=== PATIENT | male | born 1960 | race Caucasian/White ===

== ENCOUNTER → 2016-05-05 | Outpatient (CLI) | payer BC ==
[2016-05-05 11:49] LABS: CH 30.3; CHCM 35.4; HCT 49.5 % (39.0-53.0); HDW 2.96; HGB 17.1 gm/dL (13.0-17.5); MCH 29.8 pg (25.0-35.0); MCHC 34.6 g/dL (31.0-37.0); MCV 86.1 fL (80.0-100.0); RBC 5.75 m/uL (4.30-5.90); RDW 13.2 % (11.5-15.5); WBC 7.1 k/uL (3.8-10.6)
[2016-05-05 12:04] LABS: Anion Gap 11 mmol/L; Blood Urea Nitrogen 14 mg/dL (9-20); Carbon Dioxide 26 mmol/L (22-30); Chloride 105 mmol/L (98-107); Non-African American GFR(MDRD) >60 (>60 ml/min/1.73 sqM); Potassium 4.3 mmol/L (3.5-5.1); Sodium 142 mmol/L (137-145)
== END | disposition home or self-care (01) ==
LOC: LABWHC1 11:27
PROVIDERS: ATTEND Internal Medicine Interventional Cardiology
DX: Z01.812 Encounter for preprocedural laboratory examination (principal); R07.9 Chest pain, unspecified
CPT/HCPCS: 36415; 80051; 82565; 84520; 85027

== ENCOUNTER 2016-05-07 06:17 | Day surgery (SDC) | payer BC ==
[2016-05-04 11:33] VITALS: BMI 28.1
[2016-05-07] MEDS ORDERED: ATORVASTATIN 80 MG TAB PO STA (06:25)
[2016-05-07] MEDS ORDERED: ALPRAZolam 0.25 MG TAB PO PRN (06:25)
[2016-05-07] MEDS ORDERED: SODIUM CHLORIDE 0.9% 1,000 ML in EMPTY BAG 1 BAG IV ONE (06:25)
[2016-05-07] MEDS ORDERED: NITROGLYCERIN SL TABS 0.4 MG TAB SUBLINGUAL PRN (06:25)
[2016-05-07] MEDS ORDERED: ALPRAZolam 0.5 MG TAB PO PRN (06:25)
[2016-05-07] MEDS ORDERED: ASPIRIN 325 MG TAB PO STA (06:25)
[2016-05-07 07:07] VITALS: RESP 18
[2016-05-07] MEDS ORDERED: SODIUM CHLORIDE 0.9% (PF) 10 ML VIAL ONE (07:18)
[2016-05-07] MEDS ORDERED: LIDOCAINE 2% INJ 20 MG/ML (20 ML MDV) ONE (07:18)
[2016-05-07] MEDS ORDERED: VERAPAMIL 2.5 MG/ML 2 ML AMP ONE (07:19)
[2016-05-07] MEDS ORDERED: HEPARIN SODIUM 1,000 UNIT/ML VIAL ONE (07:33)
[2016-05-07] MEDS ORDERED: diphenhydrAMINE 50 MG/ML 1 ML VIAL ONE (07:34)
[2016-05-07] MEDS ORDERED: MIDAZOLAM 2 MG/2 ML VIAL ONE (07:34)
[2016-05-07] MEDS ORDERED: MIDAZOLAM 2 MG/2 ML VIAL IVP ONE (07:50)
[2016-05-07] MEDS ORDERED: LIDOCAINE 2% INJ 20 MG/ML SQ ONE (07:51)
[2016-05-07] MEDS ORDERED: VERAPAMIL SYRINGE (5 MG/10 ML) INTRAARTER ONE (07:52)
[2016-05-07] MEDS ORDERED: HEPARIN SODIUM 1,000 UNIT/ML VIAL IV ONE (07:53)
[2016-05-07] MEDS ORDERED: IOHEXOL 350 MG/ML 100 ML BOTTLE INJ ONE (08:04)
[2016-05-07] MEDS ORDERED: RX INFO: IV CONTRAST WAS GIVEN 1 EACH MISC MISCELLANE PRN (08:09)
[2016-05-07] MEDS ORDERED: SODIUM CHLORIDE 0.9% 1,000 ML IV SCH (08:15)
--- NOTE | 2016-05-07 08:44 | CC ---
DATE OF SERVICE: 05/07/2016 PERFORMING PHYSICIAN: Malka Fang, Dentist. PROCEDURE PERFORMED: 1. Selective right and left coronary angiogram. 2. Left heart catheterization. 3. Left ventriculography. INDICATION: This is a pleasant 55-year-old gentleman who was referred to me by Dr. Love for abnormal stress test. The patient was experiencing chest discomfort and he underwent myocardial perfusion imaging stress test at [facility] and that showed ischemia involving the anterior wall. The heart catheterization is for rule out severe underlying CAD. APPROACH: Right radial artery. COMPLICATIONS: None. LEVEL OF SEDATION: Moderate. PROCEDURE DESCRIPTION: After obtaining an informed consent, the patient was brought to the [facility] The right radial artery was cannulated using micropuncture technique. Micropuncture wire passed easily. Then I placed 6 Bahamian sheath in the right radial artery. Subsequently, I did give the patient 2 mg of verapamil IA and 3000 units of heparin IV. Subsequently, I did selective right and left coronary angiogram using JR4 and JL 3.5 catheters. Then I did left heart catheterization using 5 Bahamian pigtail catheter. The procedure was completed without any complication. SELECTIVE CORONARY ANGIOGRAM: 1. The right coronary artery is a large-caliber vessel, dominant vessel, and is angiographically normal. 2. The left main is angiographically normal. It bifurcates into the left circumflex, ramus intermedius, and left anterior descending artery. The left circumflex is a large-caliber vessel and it is a nondominant vessel. The proximal left circumflex is angiographically normal and gives rises into the first OM branch, which seems to be normal. The mid left circumflex is normal and gives rise into the second and third OM branches and both are angiographically normal and the circ continues after that as a small-caliber vessel in the AV groove. 3. The ramus intermedius is a moderate-caliber vessel and seems to be angiographically normal. 4. Left anterior descending artery: The proximal left anterior descending artery is normal and gives rises into the first diagonal branch, which is a large-caliber vessel and seems to be angiographically normally. The mid LAD is normal and distally is normal as well. HEMODYNAMICS: The left ventricular end-diastolic pressure was 8 to 12 mmHg and no gradient was identified across the aortic valve. CONCLUSION: 1. Normal coronary angiogram. 2. Dominant right coronary system. POSTPROCEDURE MANAGEMENT: 1. Medical treatment. 2. Follow up with the patient.
--- NOTE | 2016-05-07 08:48 | LTR ---
May 07, 2016 RE: Caleb Vance S Dear Pat; Mr. Vance Ellis underwent a heart catheterization and that showed normal coronaries. The possibility of coronary vasospasm behind his chest discomfort is quite there. I recommend at this point medical treatment and if he continues to have chest discomfort, we might consider starting him on oral nitrate. Thank you for allowing me to participate in his care and please do not hesitate to call if you have any questions or concerns. Sincerely, JAMES SCHAEFER MD
[2016-05-07 12:23] VITALS: PULSE 72
[2016-05-07 13:33] VITALS: BP 134/83; TEMP 98
== END 2016-05-07 13:20 | disposition home or self-care (01) ==
LOC: CATHCVL 06:17
PROVIDERS: ATTEND Internal Medicine Interventional Cardiology
DX: I20.0 Unstable angina (principal); I10 Essential (primary) hypertension; R94.39 Abnormal result of other cardiovascular function study; Z82.49 Family history of ischemic heart disease and other diseases of the circulatory system; Z79.82 Long term (current) use of aspirin; Z79.899 Other long term (current) drug therapy
CPT/HCPCS: 93458; 99152; C1894; J2001; J2250; Q9967; J1644

== ENCOUNTER 2018-03-16 03:06 | Emergency (ER) | payer BC ==
[2018-03-16 03:13] VITALS: TEMP 98.2
--- NOTE | 2018-03-16 03:38 | ED ---
General Adult HPI - General Source: patient, RN notes reviewed Mode of arrival: ambulatory Limitations: no limitations <Jareth Ga - Last Filed: 03/16/18 03:36> <Esther Chase - Last Filed: 03/16/18 04:25> - General Chief complaint: Eye Problems Stated complaint: R eye problem Time Seen by Provider: 03/16/18 03:16 - History of Present Illness Initial comments: 57-year-old male presents emergency Department with multiple complaints. Patient complains that he's had recurrent subconjunctival hemorrhage on the right. Patient was seen at urgent care because he's had this symptom along with right-sided facial pressure and numbness. Patient states that they thought he had some underlying sinus issues was given antibiotics. Patient states he finished some on the of this month states that he had one day where he had relief but states that symptoms returned and he noticed the redness in his eye return today. Denies any visual changes including double vision, blurred vision. Denies any pain for ocular movement. Denies any trauma denies rubbing his eye. Patient states that he felt off balance, has had 3 falls doing simple task at home is concerned that something may be wrong. He does have follow-up appointment with ENT and ophthalmology. (Jareth Ga) - Related Data Home Medications Medication Instructions Recorded Confirmed Aspirin [Adult Low Dose Aspirin EC] 81 mg PO DAILY 06/12/15 05/07/16 Allergies Allergy/AdvReac Type Severity Reaction Status Date / Time No Known Allergies Allergy Verified 03/16/18 03:13 Review of Systems ROS Other: All systems not noted in ROS Statement are negative. <Jareth Ga - Last Filed: 03/16/18 03:36> ROS Other: All systems not noted in ROS Statement are negative. <Esther Chase - Last Filed: 03/16/18 04:25> ROS Statement: Those systems with pertinent positive or pertinent negative responses have been documented in the HPI. Past Medical History Past Medical History: GERD/Reflux Additional Past Medical History / Comment(s): GERD assosciate DYSPHAGIA, History of Any Multi-Drug Resistant Organisms: None Reported Additional Past Surgical History / Comment(s): COLONOSCOPY. EGD Past Anesthesia/Blood Transfusion Reactions: No Reported Reaction Past Psychological History: No Psychological Hx Reported Smoking Status: Never smoker Past Alcohol Use History: Occasional Past Drug Use History: None Reported - Past Family History Brother(s) Family Medical History: Cancer Additional Family Medical History / Comment(s): PROSTATE <Jareth Ga - Last Filed: 03/16/18 03:36> General Exam Limitations: no limitations General appearance: alert, in no apparent distress Head exam: Present: atraumatic, normocephalic, normal inspection Eye exam: Present: PERRL, EOMI, other (Subconjunctival hemorrhage on the right) . Absent: normal appearance, scleral icterus, conjunctival injection, periorbital swelling ENT exam: Present: normal exam, normal oropharynx, mucous membranes moist, TM's normal bilaterally Neck exam: Present: normal inspection, full ROM. Absent: tenderness, meningismus, lymphadenopathy Respiratory exam: Present: normal lung sounds bilaterally. Absent: respiratory distress, wheezes, rales, rhonchi, stridor Cardiovascular Exam: Present: regular rate, normal rhythm, normal heart sounds. Absent: systolic murmur, diastolic murmur, rubs, gallop, clicks Neurological exam: Present: alert, oriented X3, CN II-XII intact, reflexes normal. Absent: motor sensory deficit Skin exam: Present: warm, dry, intact, normal color. Absent: rash <Jareth Ga M - Last Filed: 03/16/18 03:36> Vital Signs 03/16/18 03:09 Temperature 98.2 F Pulse Rate 86 Respiratory 17 Rate Blood Pressure 111/61 O2 Sat by Pulse 96 Oximetry Medical Decision Making - Lab Data Result diagrams: 03/16/18 03:37 03/16/18 03:37 <Esther Chase P - Last Filed: 03/16/18 04:25> - Lab Data Lab Results 03/16/18 03/16/18 03/16/18 Range/Units 03:37 03:37 03:37 WBC 8.0 (3.8-10.6) k/uL RBC 5.69 (4.30-5.90) m/uL Hgb 17.0 (13.0-17.5) gm/dL Hct 48.2 (39.0-53.0) % MCV 84.8 (80.0-100.0) fL MCH 29.9 (25.0-35.0) pg MCHC 35.3 (31.0-37.0) g/dL RDW 13.5 (11.5-15.5) % Plt Count 147 L (150-450) k/uL Neutrophils % 68 % Lymphocytes % 21 % Monocytes % 7 % Eosinophils % 1 % Basophils % 1 % Neutrophils # 5.4 (1.3-7.7) k/uL Lymphocytes # 1.7 (1.0-4.8) k/uL Monocytes # 0.6 (0-1.0) k/uL Eosinophils # 0.1 (0-0.7) k/uL Basophils # 0.0 (0-0.2) k/uL PT 10.4 (9.0-12.0) sec INR 1.0 (<1.2) APTT 25.3 (22.0-30.0) sec Sodium 139 (137-145) mmol/L Potassium 4.3 (3.5-5.1) mmol/L Chloride 104 (98-107) mmol/L Carbon Dioxide 26 (22-30) mmol/L Anion Gap 9 mmol/L BUN 20 (9-20) mg/dL Creatinine 1.05 (0.66-1.25) mg/dL Est GFR (CKD-EPI)AfAm >90 (>60 ml/min/1.73 sqM) Est GFR (CKD-EPI)NonAf 78 (>60 ml/min/1.73 sqM) Glucose 102 H (74-99) mg/dL Calcium 9.3 (8.4-10.2) mg/dL Disposition <Jareth Ga M - Last Filed: 03/16/18 03:36> Is patient prescribed a controlled substance at d/c from ED?: No Time of Disposition: 04:24 <Esther Chase - Last Filed: 03/16/18 04:25> Clinical Impression: Subconjunctival bleed Disposition: HOME SELF-CARE Instructions: Subconjunctival Hemorrhage (ED) Referrals: José Love MD [Primary Care Provider] - 1-2 days Mk Stein MD [STAFF PHYSICIAN] - 1-2 days
[2018-03-16 03:54] LABS: Basophils % (A) 1 %; Eosinophils # (A) 0.1 k/uL (0-0.7); Eosinophils % (A) 1 %; HCT 48.2 % (39.0-53.0); Lymphocytes # (A) 1.7 k/uL (1.0-4.8); Lymphocytes % (A) 21 %; MCH 29.9 pg (25.0-35.0); MCHC 35.3 g/dL (31.0-37.0); MCV 84.8 fL (80.0-100.0); Monocytes # (A) 0.6 k/uL (0-1.0); Monocytes % (A) 7 %; Neutrophils # (A) 5.4 k/uL (1.3-7.7); Neutrophils % (A) 68 %; Platelet Count 147 k/uL (150-450); RBC 5.69 m/uL (4.30-5.90); RDW 13.5 % (11.5-15.5)
[2018-03-16 04:06] LABS: Anion Gap 9 mmol/L; Blood Urea Nitrogen 20 mg/dL (9-20); Calcium 9.3 mg/dL (8.4-10.2); Carbon Dioxide 26 mmol/L (22-30); Chloride 104 mmol/L (98-107); Glucose 102 mg/dL (74-99); Partial Thromboplastin Time 25.3 sec (22.0-30.0); Potassium 4.3 mmol/L (3.5-5.1); Prothrombin Time 10.4 sec (9.0-12.0); Sodium 139 mmol/L (137-145)
--- NOTE | 2018-03-16 04:09 | CT ---
EXAMINATION TYPE: CT brain wo con DATE OF EXAM: 03/16/2018 COMPARISON: None HISTORY: right eye pain. CT DLP: 1089.4 mGycm Automated exposure control for dose reduction was used. FINDINGS: Ventricles of normal size. There is no mass effect nor midline shift. There is no sign of intracrania l hemorrhage. The calvarium is intact. There is no evidence of orbital mass. Sella turcica appears no rmal. IMPRESSION: NEGATIVE CT SCAN OF THE BRAIN.
[2018-03-16 05:00] VITALS: BP 130/85; PULSE 72; RESP 19
== END 2018-03-16 04:30 | disposition home or self-care (01) ==
LOC: EC 03:06
DX: H11.31 Conjunctival hemorrhage, right eye (principal); Z98.890 Other specified postprocedural states; Z79.82 Long term (current) use of aspirin
CPT/HCPCS: 36415; 70450; 80048; 85025; 85610; 85730; 99284

== ENCOUNTER → 2020-07-22 | Outpatient (CLI) | payer BC ==
[2020-07-22 14:45] LABS: Basophils # (A) 0.05 X 10*3/uL (0.00-0.10); Basophils % (A) 0.9 %; Eosinophils # (A) 0.08 X 10*3/uL (0.04-0.35); Eosinophils % (A) 1.4 %; HCT 47.4 % (39.6-50.0); HGB 16.2 g/dL (13.0-17.0); Lymphocytes # (A) 1.59 X 10*3/uL (0.90-5.00); Lymphocytes % (A) 27.9 %; MCH 28.6 pg (27.0-32.0); MCHC 34.2 g/dL (32.0-37.0); MCV 83.6 fL (80.0-97.0); Monocytes # (A) 0.59 X 10*3/uL (0.20-1.00); Monocytes % (A) 10.4 %; Neutrophils # (A) 3.34 X 10*3/uL (1.80-7.70); Neutrophils % (A) 58.7 %; Platelet Count 165 X 10*3/uL (140-440); RBC 5.67 X 10*6/uL (4.40-5.60); WBC 5.69 X 10*3/uL (4.50-10.00)
[2020-07-22 15:05] LABS: ALT 24 U/L (10-49); AST 19 U/L (14-35); African American GFR (CKD) 83.5 (60.0-200.0); Albumin/Globulin Ratio 2.21 (1.60-3.17); Alkaline Phosphatase 63 U/L (41-126); BUN/Creat Ratio 18.18 Ratio (12.00-20.00); Carbon Dioxide 28.6 mmol/L (21.6-31.8); Chloride 107 mmol/L (96-109); Chol/HDL Ratio 1.84; Cholesterol 83 mg/dL (0-200); Globulin 1.9 g/dL (1.6-3.3); Glucose 116 mg/dL (70-110); Non-African American GFR(CKD) 72.1 (60.0-200.0); Potassium 4.4 mmol/L (3.5-5.5); Prostate Specific Antigen 0.6 ng/mL (0.0-4.5); Sodium 139 mmol/L (135-145); Total Bilirubin 0.8 mg/dL (0.3-1.2); Total Protein 6.1 g/dL (6.2-8.2); Triglycerides <50.0 mg/dL (0.0-149.0)
== END | disposition home or self-care (01) ==
LOC: LABWHC1 08:32
PROVIDERS: ATTEND Family Medicine
DX: Z00.00 Encounter for general adult medical examination without abnormal findings (principal); Z12.5 Encounter for screening for malignant neoplasm of prostate; E55.9 Vitamin D deficiency, unspecified
CPT/HCPCS: 36415; 80053; 80061; 82306; 84153; 84443; 85025

== ENCOUNTER → 2023-01-02 | Outpatient (CLI) | payer OTHER ==
--- NOTE | 2023-01-02 11:29 | MR ---
EXAMINATION TYPE: MR shoulder RT wo con DATE OF EXAM: 01/02/2023 COMPARISON: None HISTORY: Right shoulder pain and limited range of motion due to getting hit by pallet at work on 11-14 TECHNIQUE: Multiplanar, multisequence imaging of the right shoulder is performed without contrast. FINDINGS: There is no bone contusion or fracture. There are a few tiny subchondral cysts in the posterolateral humeral head and the bony glenoid. There is marked osteoarthritic change of the acromioclavicular joint resulting in mild shoulder impin gement. There is mild thickening of the supraspinatus and infraspinatus tendons consistent with tendinosis. T here is a tiny rim rent tear of the supraspinatus tendon. There is no retraction of musculotendinous junctions. The subscapularis tendon is intact. No subacromial or subdeltoid bursitis. No glenohumeral joint The biceps tendon is normal in size and signal in position. The biceps anchor is intact. There is no definite tear of the cartilaginous labrum. IMPRESSION: 1. 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 Mild shoulder impingement 2. Tendinosis of the supraspinatus and infraspinatus tendons. 3. Small rim rent tear of the supraspinatus tendon.
== END | disposition home or self-care (01) ==
LOC: RADMRIMAIN 09:19
DX: M62.06 Separation of muscle (nontraumatic), lower leg (principal); M75.121 Complete rotator cuff tear or rupture of right shoulder, not specified as traumatic; M19.011 Primary osteoarthritis, right shoulder; M67.813 Other specified disorders of tendon, right shoulder

== ENCOUNTER → 2023-05-26 | Day surgery (SDC) | payer BC ==
[~2023-05-26] MED LIST: LACTATED RINGERS 1,000 ML IV SCH; PROPOFOL 10 MG/ML 20 ML VIAL IV ONE
[2023-05-26] MEDS: LACTATED RINGERS 1,000 ML IV ONE (11:00)
[2023-05-26 11:33] VITALS: TEMP 98
--- NOTE | 2023-05-26 12:23 | P.PCN ---
Date of Procedure: 05/26/23 Procedure(s) Performed: BRIEF HISTORY: Patient is a 62-year-old pleasant white male scheduled for an elective colonoscopy as a part of screening for colon cancer. PROCEDURE PERFORMED: Colonoscopy. PREOPERATIVE DIAGNOSIS: Screening for colon cancer. IV sedation per Anesthesia. PROCEDURE: After informed consent was obtained, the patient, was brought into the endoscopy unit. IV sedation was administered by Anesthesia under continuous monitoring. Digital rectal examination was normal. Initially the Olympus CF-160 flexible video colonoscope was then inserted in the rectum, gradually advanced into the cecum without any difficulty. Careful examination was performed as the scope was gradually being withdrawn. Ileocecal valve and the appendiceal orifice were visualized and appeared normal. Prep was excellent. Mucosa of the cecum, ascending colon, transverse colon, descending colon, sigmoid colon, and rectum appeared normal. Moderate sigmoid diverticulosis Retroflexion was performed in the rectum and no lesions were seen. The patient tolerated the procedure well. IMPRESSION: Normal-appearing colon from rectum to cecum with no evidence of colorectal neoplasia Moderate sigmoid diverticulosis . RECOMMENDATIONS: Findings of this examination were discussed with the patient as his family. He was advised to have a repeat screening colonoscopy in 10 years..
[2023-05-26 12:48] VITALS: BP 119/75; PULSE 81
[2023-05-26 12:49] VITALS: RESP 16
== END ==
LOC: ORWHC2ENDO 10:27
PROVIDERS: ATTEND Internal Medicine Gastroenterology
DX: Z12.11 Encounter for screening for malignant neoplasm of colon (principal); K57.30 Diverticulosis of large intestine without perforation or abscess without bleeding; K21.9 Gastro-esophageal reflux disease without esophagitis; Z79.899 Other long term (current) drug therapy; Z98.890 Other specified postprocedural states
CPT/HCPCS: 45378; J2704